=== PATIENT | male | born 1990 | race Caucasian/White ===

== ENCOUNTER 2017-10-06 10:34 | Inpatient (IN) | payer OTHER ==
[2017-10-06 13:20] VITALS: BMI 25.6
--- NOTE | 2017-10-06 14:22 | HP ---
COWS - Scale Resting Pulse: 0= [place] 80 or Below Sweatin= Chills/Flushing Restless Observation: 3= Extraneous Movement Pupil Size: 0= Normal to Room Light Bone or Joint Aches: 4=Acute Joint/Muscle Pain Runny Nose/ Eye Tearin= Runny Nose/Eyes GI Upset > 30mins: 2= Nausea/Diarrhea (NAUSEA NO VOMITING) Tremor Observation: 1= Tremor [place], Not Seen Yawning Observation: 1= 1-2x During Session Anxiety or Irritability: 1=Feels Anxious/Irritable Goose Flesh Skin: 0=Smooth Skin COWS Score: 15 CIWA Score - CIWA Score Nausea/Vomitin-Mild Nausea/No Vomiting Muscle Tremors: 4-Moderate,w/Arms Extend Anxiety: 4-Mod. Anxious/Guarded Agitation: 3 Paroxysmal Sweats: 1-Minimal Palms Moist Orientation: 0-Oriented Tacttile Disturbances: 3-Moderate Itch/Numb/Burn Auditory Disturbances: 0-None Visual Disturbances: 0-None Headache: 2-Mild CIWA-Ar Total Score: 18 Admission ROS S - HPI Chief Complaint: HEROIN AND ALCOHOL WITHDRAWAL SX Allergies/Adverse Reactions: Allergies Allergy/AdvReac Type Severity Reaction Status Date / Time No Known Allergies Allergy Verified 10/06/17 14:17 History of Present Illness: 26 Y/O MALE WITH A HX OF HEROIN AND ALCOHOL DEPENDENCE SEEKING DETOX TX. PT HAS PREVIOUS HX OF DETOX TX. Exam Limitations: No Limitations - Ebola screening Have you traveled outside of the country in the last 21 days: No Have you had contact with anyone from an Ebola affected area: No Have you been sick,other than usual withdrawal symptoms: No Do you have a fever: No - Review of Systems Constitutional: Chills, Night Sweats, Changes in sleep (NOT SLEEPING WELL. DENIES USING SLEEPING AID.) EENT: reports: Blurred Vision (WHEN USING OPIATES), Tearing, Nose Congestion Respiratory: reports: No Symptoms reported Cardiac: reports: No Symptoms Reported GI: reports: Constipated (OIC), Diarrhea, Nausea, Poor Fluid Intake, Vomiting : reports: Dysuria (OPIOID INDUCED) Musculoskeletal: reports: Back Pain, Joint Pain, Muscle Pain Integumentary: reports: Other (IVD INJ TRACK [place]) Neuro: reports: Headache, Tremors, Unsteady Gait Endocrine: reports: No Symptoms Reported Hematology: reports: No Symptoms Reported Psychiatric: reports: Orientated x3, Anxious (HX ANXIETY DISORDER-- NO MEDS) Other Systems: Reviewed and Negative Patient History - Patient Medical History Hx Anemia: No Hx Asthma: No Hx Cardiac Disorders: No Hx Hypertension: No Hx Hypercholesterolemia: No HX Cerebrovascular Accident: No Hx Seizures: No Hx Diabetes: No Hx Gastrointestinal Disorders: No Hx Liver Disease: No Hx Genitourinary Disorders: No Hx Sexually Transmitted Disorders: No Hx Renal Disease (ESRD): No Hx Thyroid Disease: No Hx Human Immunodeficiency Virus (HIV): No (NEGATIVE HX) Hx Hepatitis C: No Hx Depression: Yes (AND ANXIETY) Hx Suicide Attempt: No (DENIES PAST OR PRESENT S/I) Hx Bipolar Disorder: No Hx Schizophrenia: No - Patient Surgical History Past Surgical History: No Hx Neurologic Surgery: No Hx Cataract Extraction: No Hx Cardiac Surgery: No Hx Lung Surgery: No Hx Breast Surgery: No Hx Breast Biopsy: No Hx Abdominal Surgery: No Hx Appendectomy: No Hx Cholecystectomy: No Hx Genitourinary Surgery: No Hx Orthopedic Surgery: No Anesthesia Reaction: No - PPD History Previous Implant?: Yes Documented Results: Negative w/o proof Implanted On Prior R Admission?: No PPD to be Administered?: Yes - Reproductive History Patient is a Female of Child Bearing Age (11 -55 yrs old): No (MALE) - Smoking Cessation Smoking history: Current every day smoker Have you smoked in the past 12 months: Yes Aproximately how many cigarettes per day: 10 Hx Chewing Tobacco Use: No Initiated information on smoking cessation: Yes 'Breaking Loose' booklet given: 10/06/17 - Substance & Tx. History Hx Alcohol Use: Yes (LIQUOR) Hx Substance Use: Yes (HEROIN/MARIJUANA) Substance Use Type: Alcohol, Heroin, Marijuana Hx Substance Use Treatment: Yes (LAST TX AT [facility] DETOX 2017) - Substances Abused VODKA/WHISKEY Route: Oral Frequency: Daily Amount used: 1/2 GAL Age of first use: 14 Date of Last Use: 10/06/17 Heroin Route: Injection Frequency: Daily Amount used: 10 BAGS Age of first use: 22 Date of Last Use: 10/06/17 Marijuana/Hashish Route: Smoking Frequency: 1-2 times per week Amount used: $10 Age of first use: 13 Date of Last Use: 09/29/17 Family Disease History - Family Disease History Family Disease History: Other: Sister (BENZO DEPENDENCE) Admission Physical Exam [facility] - Vital Signs Vital Signs: Vital Signs - 24 hr 10/06/17 13:15 Temperature 97.3 F L Pulse Rate 75 Respiratory 20 Rate Blood Pressure 129/89 - Physical General Appearance: Yes: Moderate Distress, Irritable, Anxious HEENTM: Yes: EOMI, Normocephalic, CAROL, Pharynx Normal Respiratory: Yes: Chest Non-Tender, Lungs Clear, Normal Breath Sounds, No Respiratory Distress Neck: Yes: No masses,lesions,Nodules, Supple, Trachea in good position Breast: Yes: Breast Exam Deferred Cardiology: Yes: Regular Rhythm, Regular Rate, S1, S2 Abdominal: Yes: Normal Bowel Sounds, Non Tender, Flat, Soft Genitourinary: Yes: Other (N/C) Back: Yes: Within Normal Limits Musculoskeletal: Yes: full range of Motion, Gait Steady Extremities: Yes: Normal Range of Motion, Non-Tender Neurological: Yes: manager behavior II-XII NML intact, Fully Oriented, Alert, Motor Strength 5/5 Integumentary: Yes: Dry, Warm, Track [place] (RECENT TRACK YAN ON LEFT OUTER ELBOW. NO SWELLING OR WARMTH.) Lymphatic: Yes: Within Normal Limits - Diagnostic (1) Alcohol dependence with uncomplicated withdrawal Current Visit: Yes Status: Acute (2) Opioid dependence with withdrawal Current Visit: Yes Status: Acute (3) Cannabis dependence, uncomplicated Current Visit: Yes Status: Acute (4) Anxiety and depression Current Visit: Yes Status: Chronic Comment: HX OF DEPRESSION/ANXIETY Cleared for Admission [facility] - Detox or Rehab [facility] Level of Care: Medically Managed Detox Regimen/Protocol: Methadone/Librium [facility] Breath Alcohol Content Breath Alcohol Content: 0 Urine Drug Screen - Results Drug Screen Negative: No Urine Drug Screen Results: THC-Marijuana, JANN-Cocaine, OPI-Opiates
[2017-10-06] MEDS ORDERED: MAGNESIUM CITRATE 300 ML BOTTLE PO PRN (14:47)
[2017-10-06] MEDS ORDERED: NICOTINE POLACRILEX 2 MG GUM BC PRN (14:47)
[2017-10-06] MEDS ORDERED: guaiFENesin/D-METHORPHAN HB 10 ML UNIT-DOSE CUPS PO PRN (14:47)
[2017-10-06] MEDS ORDERED: P-EPHED 60MG/TRIPROLIDI 2.5MG TABLET PO PRN (14:47)
[2017-10-06] MEDS ORDERED: ACETAMINOPHEN 325 MG TABLET (FP) PO PRN (14:47)
[2017-10-06] MEDS ORDERED: MENTHOL/PHENOL 1 EACH UD MM PRN (14:47)
[2017-10-06] MEDS ORDERED: MAG HYDROX/AL HYDROX/SIMETH 30 ML UNIT-DOSE CUP PO PRN (14:47)
[2017-10-06] MEDS ORDERED: chlordiazePOXIDE HCL 25 MG CAPSULE PO PRN (14:47)
[2017-10-06] MEDS ORDERED: MAGNESIUM HYDROX 2400MG/30ML ORAL SUSPENSION 30 ML CUP PO PRN (14:47)
[2017-10-06] MEDS ORDERED: IBUPROFEN 400 MG TABLET (FP) PO PRN (14:47)
[2017-10-06] MEDS ORDERED: LOPERAMIDE HCL 2 MG CAPSULE PO PRN (14:47)
[2017-10-06] MEDS ORDERED: chlordiazePOXIDE HCL 25 MG CAPSULE PO ONE (14:47)
[2017-10-06] MEDS ORDERED: METHADONE HCL 10 MG TABLET (FOR DETOX USE ONLY) PO ONE ×2 (17:00→23:00)
[2017-10-06] MEDS ORDERED: METHADONE HCL 10 MG TABLET (FOR DETOX USE ONLY) ONE (19:06)
[2017-10-06] MEDS: NICOTINE 14 MG/24 HOURS TOPICAL PATCH TD SCH (19:13)
[2017-10-06] MEDS: chlordiazePOXIDE HCL 25 MG CAPSULE PO SCH ×2 (19:13→22:35)
[2017-10-06 21:08] LABS: URINE APPEARANCE CLEAR; URINE BILIRUBIN NEGATIVE (NEGATIVE); URINE BLOOD NEGATIVE (NEGATIVE); URINE COLOR YELLOW; URINE GLUCOSE (UA) NEGATIVE (NEGATIVE); URINE KETONE TRACE (NEGATIVE); URINE LEUK ESTERASE NEGATIVE (NEGATIVE); URINE NITRITE NEGATIVE (NEGATIVE); URINE PROTEIN NEGATIVE (NEGATIVE)
[2017-10-06] MEDS: THIAMINE HCL 100 MG TABLET (FP) PO SCH (22:35)
[2017-10-06] MEDS: MELATONIN 5 MG TABLETS PO SCH (22:35)
[2017-10-07] MEDS: chlordiazePOXIDE HCL 25 MG CAPSULE PO SCH ×4 (05:10→22:12)
--- NOTE | 2017-10-07 08:23 | EKG ---
Test Reason : Blood Pressure : / mmHG Vent. Rate : 056 BPM Atrial Rate : 056 BPM P-R Int : 124 ms QRS Dur : 090 ms QT Int : 380 ms P-R-T Axes : -23 083 055 degrees QTc Int : 366 ms SINUS BRADYCARDIA WITH SINUS ARRHYTHMIA OTHERWISE NORMAL ECG NO PREVIOUS ECGS AVAILABLE Confirmed by BEBO WAYNE, JENNI ([id number]) on 10/07/2017 8:22:43 AM Referred By: Confirmed By:JENNI LAGUNAS MD
--- NOTE | 2017-10-07 09:16 | CONSULT ---
[facility] Psychiatric Consult - Data Date of interview: 10/07/17 Admission source: [facility] Identifying data: Pt. is a 26 year old single male, unemployed, homeless, and not receiving any financial assistance. This is patient's first admission to [facility]. Pt. admitted to detox for alcohol, heroin, and cannabis dependence. Substance Abuse History: Following information confirmed with Mr. Pendleton: Smoking Cessation. Smoking history: Current every day smoker. Have you smoked in the past 12 months: Yes. Aproximately how many cigarettes per day: 10. Hx Chewing Tobacco Use: No. Initiated information on smoking cessation: Yes. ' Breaking Loose' booklet given: 10/06/17. - Substance & Tx. History. Hx Alcohol Use: Yes (LIQUOR). Hx Substance Use: Yes (HEROIN/MARIJUANA). Substance Use Type: Alcohol, Heroin, Marijuana. Hx Substance Use Treatment: Yes (LAST TX AT [facility] DETOX 2017). - Substances Abused. VODKA/ WHISKEY. Route: Oral. Frequency: Daily. Amount used: 1/2 GAL. Age of first use: 14. Date of Last Use: 10/06/17. Heroin. Route: Injection. Frequency : Daily. Amount used: 10 BAGS. Age of first use: 22. Date of Last Use: . Marijuana/Hashish. Route: Smoking. Frequency: 1-2 times per week. Amount used: $10. Age of first use: 13. Date of Last Use: 09/29/17 Medical History: Denies. Psychiatric History: Patient's first encounter with a psychiatrist was at 22 years of age. Pt. reports seeing a psychiatrist because of his anxiety and was started on lexapro. Pt. took lexapro for six months and d/c the medication. Currently, patient denies outpatient care. Pt. denies h/o psychiatric hospitalization, and suicide attempt. Physical/Sexual Abuse/Trauma History: Denies. Additional Comment: Urine Drug Screen Results: THC-Marijuana, JANN-Cocaine, OPI- Opiates Mental Status Exam - Mental Status Exam Alert and Oriented to: Time, Place, Person Cognitive Function: Good Patient Appearance: Well Groomed Mood: Euthymic Affect: Appropriate Patient Behavior: Appropriate, Cooperative Speech Pattern: Appropriate Voice Loudness: Normal Thought Process: Goal Oriented Thought Disorder: Not Present Hallucinations: Denies Suicidal Ideation: Denies Homicidal Ideation: Denies Insight/Judgement: Poor Sleep: Poorly Appetite: Fair, Poor Muscle strength/Tone: Normal Gait/Station: Normal Psychiatric Findings - Problem List ([place] 1, 2,3) (1) Alcohol dependence with uncomplicated withdrawal Current Visit: Yes Status: Acute (2) Cannabis dependence, uncomplicated Current Visit: Yes Status: Acute (3) Opioid dependence with withdrawal Current Visit: Yes Status: Acute (4) Insomnia Current Visit: Yes Status: Acute (5) Substance induced mood disorder Current Visit: Yes Status: Suspected - Initial Treatment Plan Initial Treatment Plan: Psychoeducation provided. Detoxification provided. Vistaril 50mg q4hr ordered for anxiety + Ambien 5mg qhs prn ordered for insomnia. Benefits and side effects discussed. Pt. made aware of the risk of sleep walking when accepting ambien. Verbal consent given. Will continue to monitor.
[2017-10-07] MEDS ORDERED: hydrOXYzine PAMOATE 50 MG CAPSULE (FP) PO PRN (09:21)
[2017-10-07] MEDS ORDERED: METHADONE HCL 10 MG TABLET (FOR DETOX USE ONLY) PO SCH (10:00)
[2017-10-07 10:10] LABS: HEMATOCRIT 40.1 % (35.4-49); HEMOGLOBIN 13.4 GM/dL (11.7-16.9); MCH 29.3 pg (25.7-33.7); MCHC 33.4 g/dl (32.0-35.9); MEAN CELL VOLUME 87.7 fl (80-96); MEAN PLT VOLUME 8.3 fl (7.5-11.1); PLATELET COUNT 162 K/MM3 (134-434); RBC 4.57 M/mm3 (4.00-5.60); RDW 14.8 % (11.9-15.9)
[2017-10-07 10:16] LABS: CHLORIDE 104 mmol/L (98-107); POTASSIUM 3.7 mmol/L (3.5-5.1); SODIUM 142 mmol/L (136-145)
[2017-10-07] MEDS: NICOTINE 14 MG/24 HOURS TOPICAL PATCH TD SCH (10:19)
[2017-10-07] MEDS: PRENATAL VITAMINS W/ FOLIC ACID TABLET (FP) PO SCH (10:20)
[2017-10-07 10:21] LABS: ALBUMIN 3.6 g/dl (3.4-5.0); ALK PHOS 98 U/L (45-117); ANION GAP 9 (8-16); BILIRUBIN,TOTAL 0.7 mg/dL (0.2-1.0); BLOOD UREA NITROGEN 12 mg/dL (7-18); CALCIUM 8.6 mg/dL (8.5-10.1); CO2 29 mmol/L (21-32); CREATININE 0.9 mg/dL (0.7-1.3); GLUCOSE,RANDOM 89 mg/dL (74-106); SGOT/AST 26 U/L (15-37); SGPT/ALT 38 U/L (12-78); TOT PROT 6.6 g/dl (6.4-8.2)
--- NOTE | 2017-10-07 10:54 | PN ---
S CIWA - CIWA Score Nausea/Vomitin-No Nausea/No Vomiting Muscle Tremors: 4-Moderate,w/Arms Extend Anxiety: 4-Mod. Anxious/Guarded Agitation: 4-Moderately Restless Paroxysmal Sweats: 1-Minimal Palms Moist Orientation: 0-Oriented Tacttile Disturbances: 3-Moderate Itch/Numb/Burn Auditory Disturbances: 0-None Visual Disturbances: 0-None Headache: 0-None Present CIWA-Ar Total Score: 16 BHS COWS - Scale Resting Pulse: 1= [place] 81-100 Sweatin= Chills/Flushing Restless Observation: 3= Extraneous Movement Pupil Size: 0= Normal to Room Light Bone or Joint Aches: 4=Acute Joint/Muscle Pain Runny Nose/ Eye Tearin= Runny Nose/Eyes GI Upset > 30mins: 0= None Tremor Observation of Outstretched Hands: 2= Slight Tremor Visible Yawning Observation: 0= None Anxiety or Irritability: 2=Irritable/Anxious Goose Flesh Skin: 0=Smooth Skin COWS Score: 15 S Progress Note (SOAP) Subjective: ANXIETY,IRRITABILITY,HOT/COLD FLASHES, MUSCLE ACHES,FATIGUE. Objective: 10/07/17 10:53 Vital Signs 10/07/17 10/07/17 10/07/17 03:23 06:25 06:40 Temperature 97.1 F L Pulse Rate 82 Respiratory 18 19 18 Rate Blood Pressure 109/68 10/07/17 09:40 Temperature 100.1 F H Pulse Rate 110 H Respiratory 20 Rate Blood Pressure 127/72 Laboratory Last Values WBC 7.0 K/mm3 (4.0-10.0) 10/07/17 07:30 RBC 4.57 M/mm3 (4.00-5.60) 10/07/17 07:30 Hgb 13.4 GM/dL (11.7-16.9) 10/07/17 07:30 Hct 40.1 % (35.4-49) 10/07/17 07:30 MCV 87.7 fl (80-96) 10/07/17 07:30 MCH 29.3 pg (25.7-33.7) 10/07/17 07:30 MCHC 33.4 g/dl (32.0-35.9) 10/07/17 07:30 RDW 14.8 % (11.9-15.9) 10/07/17 07:30 Plt Count 162 K/MM3 (134-434) 10/07/17 07:30 MPV 8.3 fl (7.5-11.1) 10/07/17 07:30 Sodium 142 mmol/L (136-145) 10/07/17 07:30 Potassium 3.7 mmol/L (3.5-5.1) 10/07/17 07:30 Chloride 104 mmol/L (98-107) 10/07/17 07:30 Carbon Dioxide 29 mmol/L (21-32) 10/07/17 07:30 Anion Gap 9 (8-16) 10/07/17 07:30 BUN 12 mg/dL (7-18) 10/07/17 07:30 Creatinine 0.9 mg/dL (0.7-1.3) 10/07/17 07:30 Creat Clearance w eGFR > 60 (>60) 10/07/17 07:30 Random Glucose 89 mg/dL (74-106) 10/07/17 07:30 Calcium 8.6 mg/dL (8.5-10.1) 10/07/17 07:30 Total Bilirubin 0.7 mg/dL (0.2-1.0) 10/07/17 07:30 AST 26 U/L (15-37) 10/07/17 07:30 ALT 38 U/L (12-78) 10/07/17 07:30 Alkaline Phosphatase 98 U/L (45-117) 10/07/17 07:30 Total Protein 6.6 g/dl (6.4-8.2) 10/07/17 07:30 Albumin 3.6 g/dl (3.4-5.0) 10/07/17 07:30 Urine Color Yellow 10/06/17 20:00 Urine Appearance Clear 10/06/17 20:00 Urine pH 6.0 (5.0-8.0) 10/06/17 20:00 Ur Specific [place] 1.026 (1.001-1.035) 10/06/17 20:00 Urine Protein Negative (NEGATIVE) 10/06/17 20:00 Urine Glucose (UA) Negative (NEGATIVE) 10/06/17 20:00 Urine Ketones Trace (NEGATIVE) H 10/06/17 20:00 Urine Blood Negative (NEGATIVE) 10/06/17 20:00 Urine Nitrite Negative (NEGATIVE) 10/06/17 20:00 Urine Bilirubin Negative (NEGATIVE) 10/06/17 20:00 Urine Urobilinogen 2.0 mg/dL (0.2-1.0) 10/06/17 20:00 Ur Leukocyte Esterase Negative (NEGATIVE) 10/06/17 20:00 Assessment: 10/07/17 10:54 WITHDRAWAL SX Plan: CONTINUE DETOX INCREASE PO FLUIDS
[2017-10-07] MEDS ORDERED: cloNIDine HCL 0.1 MG TABLET PO ONE (12:33)
[2017-10-07] MEDS: CYCLOBENZAPRINE HCL 10 MG TABLET (FP) PO SCH ×2 (13:32→22:12)
[2017-10-07] MEDS: cloNIDine HCL 0.1 MG TABLET PO SCH (22:12)
[2017-10-07] MEDS: THIAMINE HCL 100 MG TABLET (FP) PO SCH (22:12)
[2017-10-07] MEDS: ZOLPIDEM TARTRATE 5 MG TABLET PO PRN (22:12)
[2017-10-07] MEDS: MELATONIN 5 MG TABLETS PO SCH (22:15)
[2017-10-08] MEDS: CYCLOBENZAPRINE HCL 10 MG TABLET (FP) PO SCH ×3 (05:13→22:21)
[2017-10-08] MEDS: chlordiazePOXIDE HCL 25 MG CAPSULE PO SCH ×2 (05:13→10:13)
[2017-10-08] MEDS: NICOTINE 14 MG/24 HOURS TOPICAL PATCH TD SCH (10:12)
[2017-10-08] MEDS: PRENATAL VITAMINS W/ FOLIC ACID TABLET (FP) PO SCH (10:12)
[2017-10-08] MEDS: METHADONE HCL 5 MG TABLET (FOR DETOX USE ONLY) PO SCH (10:13)
[2017-10-08] MEDS: cloNIDine HCL 0.1 MG TABLET PO SCH ×2 (10:13→22:22)
--- NOTE | 2017-10-08 11:31 | PN ---
[facility] CIWA - CIWA Score Nausea/Vomitin-No Nausea/No Vomiting Muscle Tremors: 3 Anxiety: 4-Mod. Anxious/Guarded Agitation: 4-Moderately Restless Paroxysmal Sweats: 1-Minimal Palms Moist Orientation: 0-Oriented Tacttile Disturbances: 3-Moderate Itch/Numb/Burn Auditory Disturbances: 0-None Visual Disturbances: 0-None Headache: 0-None Present CIWA-Ar Total Score: 15 S COWS - Scale Resting Pulse: 0= [place] 80 or Below Sweatin= Chills/Flushing Restless Observation: 0= Sits Still Pupil Size: 2= Moderately Dilated Bone or Joint Aches: 4=Acute Joint/Muscle Pain Runny Nose/ Eye Tearin= Nasal Congestion GI Upset > 30mins: 0= None Tremor Observation of Outstretched Hands: 1= Tremor [place], Not Seen Yawning Observation: 1= 1-2x During Session Anxiety or Irritability: 2=Irritable/Anxious Goose Flesh Skin: 0=Smooth Skin COWS Score: 12 S Progress Note (SOAP) Subjective: C/O SLIGHT TREMORS, SWEATS. ANXIETY,MUSCLE ACHES.IRRITABILITY. Objective: 10/08/17 11:31 Vital Signs Temperature 95.9 F L 10/08/17 10:23 Pulse Rate 62 10/08/17 10:23 Respiratory Rate 19 10/08/17 10:23 Blood Pressure 105/69 10/08/17 10:23 O2 Sat by Pulse Oximetry (%) Laboratory Last Values WBC 7.0 K/mm3 (4.0-10.0) 10/07/17 07:30 RBC 4.57 M/mm3 (4.00-5.60) 10/07/17 07:30 Hgb 13.4 GM/dL (11.7-16.9) 10/07/17 07:30 Hct 40.1 % (35.4-49) 10/07/17 07:30 MCV 87.7 fl (80-96) 10/07/17 07:30 MCH 29.3 pg (25.7-33.7) 10/07/17 07:30 MCHC 33.4 g/dl (32.0-35.9) 10/07/17 07:30 RDW 14.8 % (11.9-15.9) 10/07/17 07:30 Plt Count 162 K/MM3 (134-434) 10/07/17 07:30 MPV 8.3 fl (7.5-11.1) 10/07/17 07:30 Sodium 142 mmol/L (136-145) 10/07/17 07:30 Potassium 3.7 mmol/L (3.5-5.1) 10/07/17 07:30 Chloride 104 mmol/L (98-107) 10/07/17 07:30 Carbon Dioxide 29 mmol/L (21-32) 10/07/17 07:30 Anion Gap 9 (8-16) 10/07/17 07:30 BUN 12 mg/dL (7-18) 10/07/17 07:30 Creatinine 0.9 mg/dL (0.7-1.3) 10/07/17 07:30 Creat Clearance w eGFR > 60 (>60) 10/07/17 07:30 Random Glucose 89 mg/dL (74-106) 10/07/17 07:30 Calcium 8.6 mg/dL (8.5-10.1) 10/07/17 07:30 Total Bilirubin 0.7 mg/dL (0.2-1.0) 10/07/17 07:30 AST 26 U/L (15-37) 10/07/17 07:30 ALT 38 U/L (12-78) 10/07/17 07:30 Alkaline Phosphatase 98 U/L (45-117) 10/07/17 07:30 Total Protein 6.6 g/dl (6.4-8.2) 10/07/17 07:30 Albumin 3.6 g/dl (3.4-5.0) 10/07/17 07:30 Urine Color Yellow 10/06/17 20:00 Urine Appearance Clear 10/06/17 20:00 Urine pH 6.0 (5.0-8.0) 10/06/17 20:00 Ur Specific [place] 1.026 (1.001-1.035) 10/06/17 20:00 Urine Protein Negative (NEGATIVE) 10/06/17 20:00 Urine Glucose (UA) Negative (NEGATIVE) 10/06/17 20:00 Urine Ketones Trace (NEGATIVE) H 10/06/17 20:00 Urine Blood Negative (NEGATIVE) 10/06/17 20:00 Urine Nitrite Negative (NEGATIVE) 10/06/17 20:00 Urine Bilirubin Negative (NEGATIVE) 10/06/17 20:00 Urine Urobilinogen 2.0 mg/dL (0.2-1.0) 10/06/17 20:00 Ur Leukocyte Esterase Negative (NEGATIVE) 10/06/17 20:00 RPR Titer Nonreactive (NONREACTIVE) 10/07/17 07:30 Assessment: 10/08/17 11:31 WITHDRAWAL SX Plan: CONTINUE DETOX
[2017-10-08] MEDS: chlordiazePOXIDE 5 MG CAPSULE PO SCH ×2 (17:33→22:21)
[2017-10-08] MEDS: THIAMINE HCL 100 MG TABLET (FP) PO SCH (22:21)
[2017-10-08] MEDS: ZOLPIDEM TARTRATE 5 MG TABLET PO PRN (22:21)
[2017-10-08] MEDS: MELATONIN 5 MG TABLETS PO SCH (22:21)
[2017-10-09] MEDS: CYCLOBENZAPRINE HCL 10 MG TABLET (FP) PO SCH ×3 (06:01→22:16)
[2017-10-09] MEDS: chlordiazePOXIDE 5 MG CAPSULE PO SCH ×2 (06:01→10:28)
[2017-10-09] MEDS: NICOTINE 14 MG/24 HOURS TOPICAL PATCH TD SCH (10:27)
[2017-10-09] MEDS: METHADONE HCL 5 MG TABLET (FOR DETOX USE ONLY) PO SCH (10:27)
[2017-10-09] MEDS: PRENATAL VITAMINS W/ FOLIC ACID TABLET (FP) PO SCH (10:27)
[2017-10-09] MEDS: cloNIDine HCL 0.1 MG TABLET PO SCH ×2 (10:30→22:16)
--- NOTE | 2017-10-09 15:33 | PN ---
BHS Progress Note (SOAP) Subjective: Fatigue, Body Aches. Objective: PATIENT A & O X 3, OBSERVED AMBULATING ON UNIT. NO ACUTE DISTRESS. 10/09/17 15:32 Vital Signs Temperature 96.5 F L 10/09/17 13:35 Pulse Rate 65 10/09/17 13:35 Respiratory Rate 18 10/09/17 13:35 Blood Pressure 99/60 10/09/17 13:35 O2 Sat by Pulse Oximetry (%) Laboratory Tests 10/06/17 10/07/17 10/07/17 20:00 07:30 07:30 WBC 7.0 RBC 4.57 Hgb 13.4 Hct 40.1 MCV 87.7 MCH 29.3 MCHC 33.4 RDW 14.8 Plt Count 162 MPV 8.3 Sodium 142 Potassium 3.7 Chloride 104 Carbon Dioxide 29 Anion Gap 9 BUN 12 Creatinine 0.9 Creat Clearance w eGFR > 60 Random Glucose 89 Calcium 8.6 Total Bilirubin 0.7 AST 26 ALT 38 Alkaline Phosphatase 98 Total Protein 6.6 Albumin 3.6 Urine Color Yellow Urine Appearance Clear Urine pH 6.0 Ur Specific [place] 1.026 Urine Protein Negative Urine Glucose (UA) Negative Urine Ketones Trace H Urine Blood Negative Urine Nitrite Negative Urine Bilirubin Negative Urine Urobilinogen 2.0 Ur Leukocyte Esterase Negative RPR Titer 10/07/17 07:30 WBC RBC Hgb Hct MCV MCH MCHC RDW Plt Count MPV Sodium Potassium Chloride Carbon Dioxide Anion Gap BUN Creatinine Creat Clearance w eGFR Random Glucose Calcium Total Bilirubin AST ALT Alkaline Phosphatase Total Protein Albumin Urine Color Urine Appearance Urine pH Ur Specific [place] Urine Protein Urine Glucose (UA) Urine Ketones Urine Blood Urine Nitrite Urine Bilirubin Urine Urobilinogen Ur Leukocyte Esterase RPR Titer Nonreactive LABS NOTED. Assessment: 10/09/17 15:32 WITHDRAWAL SYMPTOMS. Plan: CONTINUE DETOX.
[2017-10-09] MEDS: chlordiazePOXIDE HCL 10 MG CAPSULE PO SCH ×2 (17:29→22:16)
[2017-10-09] MEDS: MELATONIN 5 MG TABLETS PO SCH (22:16)
[2017-10-09] MEDS: ZOLPIDEM TARTRATE 5 MG TABLET PO PRN (22:16)
[2017-10-09] MEDS: THIAMINE HCL 100 MG TABLET (FP) PO SCH (22:16)
[2017-10-10] MEDS: CYCLOBENZAPRINE HCL 10 MG TABLET (FP) PO SCH ×3 (05:33→22:25)
[2017-10-10] MEDS: chlordiazePOXIDE HCL 10 MG CAPSULE PO SCH ×2 (05:33→10:32)
[2017-10-10] MEDS ORDERED: METHADONE HCL 10 MG TABLET (FOR DETOX USE ONLY) PO SCH (10:00)
[2017-10-10] MEDS: PRENATAL VITAMINS W/ FOLIC ACID TABLET (FP) PO SCH (10:32)
[2017-10-10] MEDS: cloNIDine HCL 0.1 MG TABLET PO SCH ×2 (10:33→22:25)
[2017-10-10] MEDS: NICOTINE 14 MG/24 HOURS TOPICAL PATCH TD SCH (10:33)
--- NOTE | 2017-10-10 12:36 | PN ---
BHS Progress Note (SOAP) Subjective: Chills, sweating Objective: 10/10/17 12:32 Last Vital Signs Temp Pulse Resp BP Pulse Ox 96.5 F L 61 18 94/62 10/10/17 09:15 10/10/17 09:15 10/10/17 09:15 10/10/17 09:15 Laboratory Tests 10/06/17 10/07/17 10/07/17 20:00 07:30 07:30 WBC 7.0 RBC 4.57 Hgb 13.4 Hct 40.1 MCV 87.7 MCH 29.3 MCHC 33.4 RDW 14.8 Plt Count 162 MPV 8.3 Sodium 142 Potassium 3.7 Chloride 104 Carbon Dioxide 29 Anion Gap 9 BUN 12 Creatinine 0.9 Creat Clearance w eGFR > 60 Random Glucose 89 Calcium 8.6 Total Bilirubin 0.7 AST 26 ALT 38 Alkaline Phosphatase 98 Total Protein 6.6 Albumin 3.6 Urine Color Yellow Urine Appearance Clear Urine pH 6.0 Ur Specific [place] 1.026 Urine Protein Negative Urine Glucose (UA) Negative Urine Ketones Trace H Urine Blood Negative Urine Nitrite Negative Urine Bilirubin Negative Urine Urobilinogen 2.0 Ur Leukocyte Esterase Negative RPR Titer 10/07/17 07:30 WBC RBC Hgb Hct MCV MCH MCHC RDW Plt Count MPV Sodium Potassium Chloride Carbon Dioxide Anion Gap BUN Creatinine Creat Clearance w eGFR Random Glucose Calcium Total Bilirubin AST ALT Alkaline Phosphatase Total Protein Albumin Urine Color Urine Appearance Urine pH Ur Specific [place] Urine Protein Urine Glucose (UA) Urine Ketones Urine Blood Urine Nitrite Urine Bilirubin Urine Urobilinogen Ur Leukocyte Esterase RPR Titer Nonreactive Labs noted Assessment: 10/10/17 12:33 Withdrawal symptoms Plan: Continue detox Noted with hypotension: asymptomatic, Encouraged PO water hydration
[2017-10-10] MEDS: THIAMINE HCL 100 MG TABLET (FP) PO SCH (22:25)
[2017-10-10] MEDS: MELATONIN 5 MG TABLETS PO SCH (22:25)
[2017-10-11] MEDS: CYCLOBENZAPRINE HCL 10 MG TABLET (FP) PO SCH (05:39)
[2017-10-11] MEDS ORDERED: METHADONE HCL 5 MG TABLET (FOR DETOX USE ONLY) PO SCH (06:00)
[2017-10-11 09:22] VITALS: BP 98/52; PULSE 70; TEMP 96.1
[2017-10-11] MEDS: cloNIDine HCL 0.1 MG TABLET PO SCH (10:15)
[2017-10-11] MEDS: NICOTINE 14 MG/24 HOURS TOPICAL PATCH TD SCH (10:16)
[2017-10-11] MEDS: PRENATAL VITAMINS W/ FOLIC ACID TABLET (FP) PO SCH (10:16)
--- NOTE | 2017-10-11 19:43 | PN ---
BHS Progress Note (SOAP) Subjective: Patient denies any current detox symptoms and reports that he is feeling well overall. Objective: PATIENT A & O X 3, OBSERVED AMBULATING ON UNIT. NO ACUTE DISTRESS. 10/11/17 19:40 Vital Signs Temperature 96.1 F L 10/11/17 09:20 Pulse Rate 70 10/11/17 09:20 Respiratory Rate 18 10/11/17 09:20 Blood Pressure 98/52 10/11/17 09:20 O2 Sat by Pulse Oximetry (%) Laboratory Tests 10/06/17 10/07/17 10/07/17 20:00 07:30 07:30 WBC 7.0 RBC 4.57 Hgb 13.4 Hct 40.1 MCV 87.7 MCH 29.3 MCHC 33.4 RDW 14.8 Plt Count 162 MPV 8.3 Sodium 142 Potassium 3.7 Chloride 104 Carbon Dioxide 29 Anion Gap 9 BUN 12 Creatinine 0.9 Creat Clearance w eGFR > 60 Random Glucose 89 Calcium 8.6 Total Bilirubin 0.7 AST 26 ALT 38 Alkaline Phosphatase 98 Total Protein 6.6 Albumin 3.6 Urine Color Yellow Urine Appearance Clear Urine pH 6.0 Ur Specific [place] 1.026 Urine Protein Negative Urine Glucose (UA) Negative Urine Ketones Trace H Urine Blood Negative Urine Nitrite Negative Urine Bilirubin Negative Urine Urobilinogen 2.0 Ur Leukocyte Esterase Negative RPR Titer 10/07/17 07:30 WBC RBC Hgb Hct MCV MCH MCHC RDW Plt Count MPV Sodium Potassium Chloride Carbon Dioxide Anion Gap BUN Creatinine Creat Clearance w eGFR Random Glucose Calcium Total Bilirubin AST ALT Alkaline Phosphatase Total Protein Albumin Urine Color Urine Appearance Urine pH Ur Specific [place] Urine Protein Urine Glucose (UA) Urine Ketones Urine Blood Urine Nitrite Urine Bilirubin Urine Urobilinogen Ur Leukocyte Esterase RPR Titer Nonreactive LABS NOTED. Assessment: 10/11/17 19:40 COMPLETION OF DETOX REGIMEN. 10/11/17 19:40 Plan: PATIENT SCHEDULED FOR DISCHARGE FROM DETOX TODAY. PATIENT WILL GO TO [facility] ([place], [place] FOR AFTERCARE.
--- NOTE | 2017-10-11 19:47 | DS ---
[facility] Detox Discharge Summary Admission Date: 10/06/17 Discharge Date: 10/11/17 - History Present History: Alcohol Dependence, Cannabis Dependence, Opioid Dependence Additional Comments: PATIENT SCHEDULED FOR DISCHARGE FROM DETOX TODAY. NO BED AVAILABLE AT [facility] ([place], [place] TODAY; [facility], B[facility] WILL BE AV[facility] TOMORROW. PATIENT WILL RETURN TO [facility] ([place], [place] TODAY AND WILL GO TO [facility] FOR REHAB TOMORROW. PATIENT WAS DISCHARGED FROM DETOX UNIT IN STABLE MEDICAL CONDITION. Pertinent Past History: Depression, Anxiety, Insomnia. - Physical Exam Results Vital Signs: Vital Signs Temperature 96.1 F L 10/11/17 09:20 Pulse Rate 70 10/11/17 09:20 Respiratory Rate 18 10/11/17 09:20 Blood Pressure 98/52 10/11/17 09:20 O2 Sat by Pulse Oximetry (%) Pertinent Admission Physical Exam Findings: WITHDRAWAL SYMPTOMS. Laboratory Tests 10/06/17 10/07/17 10/07/17 20:00 07:30 07:30 WBC 7.0 RBC 4.57 Hgb 13.4 Hct 40.1 MCV 87.7 MCH 29.3 MCHC 33.4 RDW 14.8 Plt Count 162 MPV 8.3 Sodium 142 Potassium 3.7 Chloride 104 Carbon Dioxide 29 Anion Gap 9 BUN 12 Creatinine 0.9 Creat Clearance w eGFR > 60 Random Glucose 89 Calcium 8.6 Total Bilirubin 0.7 AST 26 ALT 38 Alkaline Phosphatase 98 Total Protein 6.6 Albumin 3.6 Urine Color Yellow Urine Appearance Clear Urine pH 6.0 Ur Specific [place] 1.026 Urine Protein Negative Urine Glucose (UA) Negative Urine Ketones Trace H Urine Blood Negative Urine Nitrite Negative Urine Bilirubin Negative Urine Urobilinogen 2.0 Ur Leukocyte Esterase Negative RPR Titer 10/07/17 07:30 WBC RBC Hgb Hct MCV MCH MCHC RDW Plt Count MPV Sodium Potassium Chloride Carbon Dioxide Anion Gap BUN Creatinine Creat Clearance w eGFR Random Glucose Calcium Total Bilirubin AST ALT Alkaline Phosphatase Total Protein Albumin Urine Color Urine Appearance Urine pH Ur Specific [place] Urine Protein Urine Glucose (UA) Urine Ketones Urine Blood Urine Nitrite Urine Bilirubin Urine Urobilinogen Ur Leukocyte Esterase RPR Titer Nonreactive LABS NOTED. - Treatment Hospital Course: Detox Protocol Followed, Detoxed Safely, Responded well, Discharged Condition Good, Rehab Referral Accepted Patient has Accepted a Rehab Referral to: [facility] ( Tommy [facility]HEVARRIA). - Medication Discharge Medications: Ambulatory Orders NK [No Known Home Medication] 10/06/17 - Diagnosis (1) Alcohol dependence with uncomplicated withdrawal Status: Acute (2) Cannabis dependence, uncomplicated Status: Chronic (3) Opioid dependence with withdrawal Status: Acute (4) Anxiety and depression Status: Chronic (5) Insomnia Status: Acute Qualifiers: Insomnia type: unspecified Qualified Code(s): G47.00 - Insomnia, unspecified (6) Substance induced mood disorder Status: Suspected - AMA Did Patient Leave Against Medical Advice: No
== END 2017-10-11 14:30 | disposition home or self-care (01) | DRG 773 ==
LOC: YASAS 10:34 → Y3N 16:23
PROVIDERS: ADMIT Internal Medicine; ATTEND Internal Medicine
PROC: HZ2ZZZZ Detoxification Services for Substance Abuse Treatment (ICD-10-PCS; principal; 2017-10-06)
DX: F11.23 Opioid dependence with withdrawal (principal); F10.230 Alcohol dependence with withdrawal, uncomplicated; F12.20 Cannabis dependence, uncomplicated; F17.210 Nicotine dependence, cigarettes, uncomplicated; F41.8 Other specified anxiety disorders; F19.24 Other psychoactive substance dependence with psychoactive substance-induced mood disorder; G47.00 Insomnia, unspecified; I95.9 Hypotension, unspecified; Z59.0 Homelessness
CPT/HCPCS: 36415; 80053; 81003; 85027; 86593; 93005; 93010; J0735